=== PATIENT | male | born 2000 | race Two or more races ===

== ENCOUNTER 2021-06-24 13:55 | Emergency (ER) | payer MEDICAID, OTHER ==
[~2021-06-24] VITALS: Ht 170.2 cm; Wt 49.9 kg
[2021-06-24] MEDS ORDERED: ASPirin 81 mg TAB PO ONE (14:15)
[2021-06-24 16:47] LABS: Basophils # (auto) 0 10 ^3/uL (0-0.2); Eosinophils # (auto) 0 10 ^3/uL (0-0.8); Lymphocytes # (auto) 1.3 10 ^3/uL (0.4-5.4); Monocytes # (auto) 0.7 10 ^3/uL (0-1.3); Neutrophils # (auto) 2.6 10 ^3/uL (1.6-8.6); White Blood Cell 4.6 10^3/uL (4.4-10.8)
[2021-06-24 16:49] LABS: Basophils % (auto) 0.6 % (0.0-2.0); Eosinophils % (auto) 0.6 % (0.0-7.0); Lymphocytes % (auto) 27.5 % (10.0-50.0); Monocytes % (auto) 14.9 % (0.0-12.0); Neutrophils % (auto) 56.4 % (37.0-80.0); Nucleated Red Blood Cells % 1.6 %
[2021-06-24 17:01] LABS: Hemoglobin 17.8 g/dL (13.5-17.5); Red Blood Cells 5.92 10^6/uL (4.5-5.90)
[2021-06-24 17:02] LABS: Hematocrit 49.9 % (41.0-53.0); Mean Corpuscular Hemoglobin 30.1 pg (28.0-32.0); Mean Corpuscular Hgb Conc. 35.7 g/dL (32.0-36.0); Mean Corpuscular Volume 84.3 fL (80.0-100.0); Red Cell Distribution Width 13.3 % (11.8-14.3)
[2021-06-24 17:03] LABS: Albumin 4.2 g/dL (3.4-5.0); Calcium 8.7 mg/dL (8.5-10.1); Potassium 3.7 mmol/L (3.5-5.1)
[2021-06-24 17:08] LABS: BUN/Creatinine Ratio 19.2; Total Protein 8.7 g/dL (6.4-8.2)
[2021-06-24 19:30] VITALS: BP 123/75
== END 2021-06-24 19:26 | disposition home or self-care (01) ==
LOC: EDBD 13:55 → ER 13:55
DX: J18.9 Pneumonia, unspecified organism (principal); R07.89 Other chest pain
CPT/HCPCS: 36415; 71045; 80053; 84443; 84484; 85025; 93005